=== PATIENT | male | born 1955 | race Caucasian/White ===

== ENCOUNTER 2017-07-23 07:05 | Emergency (ER) | payer BC ==
--- NOTE | 2017-07-23 07:46 | RAD ---
TWO VIEWS OF THE CHEST: COMPARISON: 01/19/16. HISTORY: Cough and shortness of breath. FINDINGS: Two views of the chest show a normal-size cardiomediastinal silhouette. There is a nodular opacity p rojecting over the mid portion of the right thorax. No pleural effusion or consolidation are seen. Hyperexpansion of the lungs is seen which could be secondary to COPD. IMPRESSION: Nodular opacity projecting over the right thorax. A repeat examination with nipple markers could be performed. Alternatively, a CT of the chest with contrast could be performed to evaluate this nodula r density. CODE T POS: [facility]
[2017-07-23] MEDS ORDERED: Dexamethasone 4 mg/ml Vial ONE (08:28)
== END 2017-07-23 08:36 | disposition home or self-care (01) ==
LOC: ERS 07:05
DX: J44.1 Chronic obstructive pulmonary disease with (acute) exacerbation (principal); I10 Essential (primary) hypertension; F41.9 Anxiety disorder, unspecified; F17.210 Nicotine dependence, cigarettes, uncomplicated; Z71.6 Tobacco abuse counseling; Z79.899 Other long term (current) drug therapy
CPT/HCPCS: 71046; 96372; 99406; J1100; J7620

== ENCOUNTER 2024-01-25 00:51 | Inpatient (IN) | payer MEDICARE ==
[2024-01-25 02:21] VITALS: BMI 17.9
[2024-01-25] MEDS ORDERED: Acetaminophen 325 MG TAB PO PRN (02:28)
[2024-01-25] MEDS ORDERED: Ondansetron PF 4 MG/2 ML Vial IVP PRN (02:28)
[2024-01-25] MEDS ORDERED: Albuterol 200 PUFF INH INH PRN (02:37)
[2024-01-25] MEDS: Melatonin 3 MG TAB PO PRN (03:46)
[2024-01-25 06:47] LABS: Troponin I 0.021 ng/mL (< 0.028)
[2024-01-25] MEDS: Furosemide 40 MG (4 mL) VIAL SLOW IVP SCH (07:00)
[2024-01-25] MEDS: Mometasone 200 MCG/Formoterol 5 MCG 120 PUFF INHALER INH SCH (07:20)
[2024-01-25] MEDS: predniSONE 20 MG TAB PO SCH (07:27)
[2024-01-25] MEDS: Atenolol 50 MG TAB PO SCH (07:27)
[2024-01-25] MEDS: Doxazosin Mesylate 4 MG TAB PO SCH (07:28)
[2024-01-25] MEDS: ALPRAZolam 0.5 MG TAB PO PRN (07:28)
[2024-01-25 07:44] LABS: Amphetamine Not Detected (NotDetected); Barbiturates Screen Not Detected (NotDetected); Benzodiazepine Screen Detected (NotDetected); Cocaine Metabolite Screen Not Detected (NotDetected); Methadone Not Detected (NotDetected); Methamphetamine Not Detected (NotDetected); Opiate Screen Not Detected (NotDetected); Oxycodone Screen Not Detected (NotDetected); Phencyclidine (PCP) Not Detected (NotDetected); THC/Cannabinoid Screen Not Detected (NotDetected); Tricyclic Screen Not Detected (NotDetected)
[2024-01-25 08:00] LABS: Anion Gap 17 mmol/L (10-20); BUN (Urea Nitrogen) 7 mg/dL (8.4-25.7); Calc. Creatinine Clearance 89 mL/min (70-130); Calcium 9.1 mg/dL (7.8-10.44); Carbon Dioxide 26 mmol/L (23-31); Chloride 87 mmol/L (98-107); Estimated GFR 107; Glucose 132 mg/dL (80-115); Potassium 3.5 mmol/L (3.5-5.1); Sodium 126 mmol/L (136-145)
[2024-01-25] MEDS ORDERED: Ipratropium/Albuterol 3 ML NEB NEB PRN (08:18)
[2024-01-25 08:20] LABS: #Basophils Less than 0.03 10x3/uL (0.0-0.2); #Eosinophils Less than 0.03 10x3/uL (0.0-0.7); %Lymphocytes 8.4 % (21.0-51.0); %Monocytes 3.7 % (0.0-10.0); %Neutrophils 87.9 % (42.0-75.0); Hematocrit 37.3 % (42.0-52.0); Hemoglobin 13.3 g/dL (14.0-18.0); Mean Corpuscular HGB CONC 35.9 g/dL (32.0-36.0); Mean Corpuscular Hemoglobin 33.5 pg (27.0-31.0); Mean Corpuscular Volume 93.3 fL (78.0-98.0); Mean Platelet Volume 9.9 fL (7.4-10.4); Platelet Adequacy Comment Platelets Decreased; Platelet Count 98 10x3/uL (130-400); RBC Morphology Within Normal Limits
[2024-01-25] MEDS: Aspirin 81 mg Enteric Coated Tablet PO SCH (09:49)
[2024-01-25] MEDS: Ipratropium/Albuterol 3 ML NEB NEB SCH ×2 (10:42→14:31)
[2024-01-25 10:57] VITALS: BMI 17.7
[2024-01-25] MEDS ORDERED: Ipratropium/Albuterol 3 ML NEB NEB SCH (13:00)
[2024-01-25] MEDS: Atorvastatin Calcium 20 MG TAB PO SCH (20:41)
[2024-01-26 05:20] LABS: ALT (SGPT) 33 U/L (8-55); AST (SGOT) 56 U/L (5-34); Albumin 3.2 g/dL (3.4-4.8); Alkaline Phosphatase 171 U/L (40-110); Anion Gap 15 mmol/L (10-20); BUN (Urea Nitrogen) 13 mg/dL (8.4-25.7); Bilirubin, Total 1.1 mg/dL (0.2-1.2); Calc. Creatinine Clearance 101 mL/min (70-130); Calcium 8.7 mg/dL (7.8-10.44); Carbon Dioxide 29 mmol/L (23-31); Chloride 86 mmol/L (98-107); Estimated GFR 112; Globulin 3.1 g/dL (2.4-3.5); Glucose 114 mg/dL (80-115); Potassium 2.5 mmol/L (3.5-5.1); Protein, Total 6.3 g/dL (5.8-8.1); Sodium 127 mmol/L (136-145)
[2024-01-26 05:27] LABS: #Basophils Less than 0.03 10x3/uL (0.0-0.2); #Eosinophils Less than 0.03 10x3/uL (0.0-0.7); %Lymphocytes 10.7 % (21.0-51.0); %Monocytes 14.3 % (0.0-10.0); %Neutrophils 74.7 % (42.0-75.0); Hemoglobin 11.5 g/dL (14.0-18.0); Mean Corpuscular HGB CONC 35.9 g/dL (32.0-36.0); Mean Corpuscular Volume 94.7 fL (78.0-98.0); Platelet Count 98 10x3/uL (130-400); Red Blood Cell (RBC) Count 3.38 mill/uL (4.70-6.10)
[2024-01-26] MEDS: Potassium Chloride 20 MEQ TAB PO SCH (05:55)
[2024-01-26] MEDS: Furosemide 20 MG (2 mL) VIAL SLOW IVP SCH (05:56)
[2024-01-26 06:22] LABS: Magnesium 1.7 mg/dL (1.6-2.6)
[2024-01-26] MEDS: Potassium Chloride 10 MEQ in Premix 1 BAG IVPB SCH (06:41)
[2024-01-26] MEDS: Atenolol 50 MG TAB PO SCH (08:41)
[2024-01-26] MEDS: Aspirin 81 mg Enteric Coated Tablet PO SCH (08:41)
[2024-01-26] MEDS: Potassium Bicarbonate/Cit Ac 20 MEQ TAB PO SCH (12:31)
[2024-01-26 17:51] LABS: Potassium 3.9 mmol/L (3.5-5.1)
[2024-01-27 04:53] LABS: Hematocrit 34.4 % (42.0-52.0); Mean Corpuscular HGB CONC 34.9 g/dL (32.0-36.0); Mean Corpuscular Hemoglobin 33.5 pg (27.0-31.0); Mean Corpuscular Volume 96.1 fL (78.0-98.0); Mean Platelet Volume 9.9 fL (7.4-10.4); Platelet Count 97 10x3/uL (130-400); RBC Distribution Width 13.2 % (11.5-14.5); Red Blood Cell (RBC) Count 3.58 mill/uL (4.70-6.10)
[2024-01-27 05:01] LABS: Anion Gap 12 mmol/L (10-20); BUN (Urea Nitrogen) 11 mg/dL (8.4-25.7); Calc. Creatinine Clearance 88 mL/min (70-130); Calcium 8.9 mg/dL (7.8-10.44); Carbon Dioxide 25 mmol/L (23-31); Chloride 91 mmol/L (98-107); Estimated GFR 110; Glucose 99 mg/dL (80-115); Potassium 3.5 mmol/L (3.5-5.1); Sodium 124 mmol/L (136-145)
[2024-01-27 11:34] VITALS: BP 169/89; TEMP 98.7
== END 2024-01-27 14:26 | disposition home or self-care (01) | DRG 191 ==
LOC: 2NO 01:52 → OBSVTOIN 01-26 08:18
PROVIDERS: ADMIT Internal Medicine; ATTEND Internal Medicine
DX: J44.1 Chronic obstructive pulmonary disease with (acute) exacerbation (principal); D61.818 Other pancytopenia; E87.1 Hypo-osmolality and hyponatremia; I10 Essential (primary) hypertension; E87.6 Hypokalemia; M19.90 Unspecified osteoarthritis, unspecified site; F41.9 Anxiety disorder, unspecified; F17.210 Nicotine dependence, cigarettes, uncomplicated; D69.59 Other secondary thrombocytopenia; K70.30 Alcoholic cirrhosis of liver without ascites; Z79.899 Other long term (current) drug therapy
CPT/HCPCS: 36415; 71045; 76705; 80048; 80053; 80306; 83735; 83880; 84484; 85025; 85027; 85610; 85730; 93005; 93306; 94640; 96374; 96375; 96376; G0378; J1940; J2919; J3480; J7512; J7620

== ENCOUNTER 2024-04-09 01:25 | Inpatient (IN) | payer MEDICARE ==
[2024-04-09] MEDS ORDERED: Dexamethasone 10 MG/ML VIAL ONE (01:48)
[2024-04-09] MEDS ORDERED: Ipratropium/Albuterol 3 ML NEB ONE (01:48)
[2024-04-09 02:43] LABS: #Basophils Less than 0.03 10x3/uL (0.0-0.2); #Eosinophils Less than 0.03 10x3/uL (0.0-0.7); %Basophils 0.1 % (0.0-1.0); %Eosinophils 0.1 % (0.0-10.0); %Lymphocytes 8.5 % (21.0-51.0); %Monocytes 10.2 % (0.0-10.0); %Neutrophils 80.6 % (42.0-75.0); Hematocrit 33.1 % (42.0-52.0); Hemoglobin 11.8 g/dL (14.0-18.0); Mean Corpuscular HGB CONC 35.6 g/dL (32.0-36.0); Mean Corpuscular Hemoglobin 32.5 pg (27.0-31.0); Mean Corpuscular Volume 91.2 fL (78.0-98.0); Mean Platelet Volume 9.2 fL (7.4-10.4); Platelet Count 130 10x3/uL (130-400); RBC Distribution Width 11.1 % (11.5-14.5); Red Blood Cell (RBC) Count 3.63 mill/uL (4.70-6.10)
[2024-04-09 02:48] LABS: ALT (SGPT) 21 U/L (Less than 45); AST (SGOT) 66 U/L (11-34); Albumin 2.8 g/dL (3.1-4.5); Alkaline Phosphatase 131 U/L (40-110); Anion Gap 15 mmol/L (10-20); BUN (Urea Nitrogen) 10 mg/dL (8.4-25.7); Bilirubin, Total 1.7 mg/dL (0.3-1.2); Calc. Creatinine Clearance 0 mL/min (70-130); Calcium 8.5 mg/dL (7.8-10.44); Carbon Dioxide 18 mmol/L (23-31); Chloride 82 mmol/L (98-107); Estimated GFR 113; Globulin 2.7 g/dL (2.4-3.5); Glucose 88 mg/dL (80-115); Protein, Total 5.5 g/dL (5.8-8.1); Sodium 111 mmol/L (136-145)
[2024-04-09] MEDS ORDERED: Ondansetron PF 4 MG/2 ML Vial IVP PRN (04:32)
[2024-04-09 04:45] VITALS: BMI 16.5
[2024-04-09] MEDS ORDERED: Acetaminophen 325 MG TAB PO PRN (06:55)
[2024-04-09 07:20] LABS: Calcium 8.5 mg/dL (7.8-10.44); Chloride 83 mmol/L (98-107); Potassium 4.2 mmol/L (3.5-5.1)
[2024-04-09 07:21] LABS: Glucose 80 mg/dL (80-115)
[2024-04-09 07:22] LABS: Anion Gap 15 mmol/L (10-20); Carbon Dioxide 17 mmol/L (23-31)
[2024-04-09 07:24] LABS: Calc. Creatinine Clearance 109 mL/min (70-130); Estimated GFR 115
[2024-04-09 07:25] LABS: BUN (Urea Nitrogen) 11 mg/dL (8.4-25.7)
[2024-04-09 07:45] LABS: Sodium 111 mmol/L (136-145)
[2024-04-09] MEDS: Enoxaparin 30 MG (0.3 mL) SYRINGE SC SCH (09:14)
[2024-04-09] MEDS: Famotidine/PF 20 mg/2ml Vial SLOW IVP SCH (09:14)
[2024-04-09] MEDS: Sodium Chloride 3% 500 ML IVPB SCH (11:55)
[2024-04-09 12:25] LABS: Anion Gap 15 mmol/L (10-20); BUN (Urea Nitrogen) 11 mg/dL (8.4-25.7); Calc. Creatinine Clearance 112 mL/min (70-130); Calcium 8.4 mg/dL (7.8-10.44); Carbon Dioxide 16 mmol/L (23-31); Chloride 84 mmol/L (98-107); Estimated GFR 115; Glucose 83 mg/dL (80-115); Potassium 4.2 mmol/L (3.5-5.1); Sodium 111 mmol/L (136-145)
[2024-04-09 14:27] LABS: Anion Gap 16 mmol/L (10-20); BUN (Urea Nitrogen) 12 mg/dL (8.4-25.7); Calc. Creatinine Clearance 109 mL/min (70-130); Calcium 8.4 mg/dL (7.8-10.44); Carbon Dioxide 17 mmol/L (23-31); Chloride 85 mmol/L (98-107); Estimated GFR 115; Glucose 78 mg/dL (80-115); Potassium 4.3 mmol/L (3.5-5.1); Sodium 114 mmol/L (136-145)
[2024-04-09 18:32] LABS: Anion Gap 17 mmol/L (10-20); BUN (Urea Nitrogen) 13 mg/dL (8.4-25.7); Calc. Creatinine Clearance 107 mL/min (70-130); Calcium 8.4 mg/dL (7.8-10.44); Carbon Dioxide 16 mmol/L (23-31); Chloride 88 mmol/L (98-107); Estimated GFR 114; Glucose 79 mg/dL (80-115); Potassium 4.2 mmol/L (3.5-5.1); Sodium 117 mmol/L (136-145)
[2024-04-09 21:50] LABS: Anion Gap 17 mmol/L (10-20); BUN (Urea Nitrogen) 14 mg/dL (8.4-25.7); Calc. Creatinine Clearance 98 mL/min (70-130); Calcium 8.3 mg/dL (7.8-10.44); Carbon Dioxide 17 mmol/L (23-31); Chloride 89 mmol/L (98-107); Estimated GFR 111; Glucose 89 mg/dL (80-115); Potassium 3.9 mmol/L (3.5-5.1); Sodium 119 mmol/L (136-145)
[2024-04-10 03:41] LABS: Anion Gap 16 mmol/L (10-20); BUN (Urea Nitrogen) 15 mg/dL (8.4-25.7); Calc. Creatinine Clearance 100 mL/min (70-130); Carbon Dioxide 18 mmol/L (23-31); Chloride 89 mmol/L (98-107); Potassium 3.8 mmol/L (3.5-5.1); Sodium 119 mmol/L (136-145)
[2024-04-10 03:42] LABS: Calcium 8.5 mg/dL (7.8-10.44); Estimated GFR 112; Glucose 87 mg/dL (80-115)
[2024-04-10] MEDS: Sodium Chloride 0.9% 1,000 ML IV SCH (10:13)
[2024-04-10] MEDS ORDERED: Lorazepam 2 MG/ML VIAL IM PRN (15:14)
[2024-04-10] MEDS ORDERED: Lorazepam 1 MG TAB PO PRN (15:14)
[2024-04-10] MEDS ORDERED: Ondansetron ODT 4 MG TAB PO PRN (15:14)
[2024-04-10] MEDS ORDERED: Electrolyte Replacement Protocol 1 EACH FS SCH (15:15)
[2024-04-10] MEDS ORDERED: Electrolyte Replacement Protocol FS PRN (15:30)
[2024-04-10 16:06] LABS: Anion Gap 18 mmol/L (10-20); BUN (Urea Nitrogen) 15 mg/dL (8.4-25.7); Calc. Creatinine Clearance 100 mL/min (70-130); Calcium 8.6 mg/dL (7.8-10.44); Carbon Dioxide 15 mmol/L (23-31); Chloride 90 mmol/L (98-107); Estimated GFR 112; Glucose 105 mg/dL (80-115); Potassium 4.3 mmol/L (3.5-5.1); Sodium 119 mmol/L (136-145)
[2024-04-10] MEDS: Lorazepam 1 MG TAB PO SCH (16:15)
[2024-04-10] MEDS: Thiamine HCl 200 MG/2 ML VIAL SLOW IVP SCH (16:15)
[2024-04-10] MEDS: Lorazepam 2 MG/ML VIAL SLOW IVP SCH (22:13)
[2024-04-11 07:00] LABS: #Basophils Less than 0.03 10x3/uL (0.0-0.2); #Eosinophils Less than 0.03 10x3/uL (0.0-0.7); %Basophils 0.1 % (0.0-1.0); %Lymphocytes 7.3 % (21.0-51.0); %Monocytes 8.7 % (0.0-10.0); %Neutrophils 83.3 % (42.0-75.0); Hematocrit 32.8 % (42.0-52.0); Hemoglobin 11.9 g/dL (14.0-18.0); Mean Corpuscular HGB CONC 36.3 g/dL (32.0-36.0); Mean Corpuscular Volume 90.9 fL (78.0-98.0); Platelet Count 123 10x3/uL (130-400); RBC Distribution Width 11.4 % (11.5-14.5); Red Blood Cell (RBC) Count 3.61 mill/uL (4.70-6.10)
[2024-04-11 07:26] LABS: Anion Gap 16 mmol/L (10-20); BUN (Urea Nitrogen) 15 mg/dL (8.4-25.7); Calc. Creatinine Clearance 100 mL/min (70-130); Calcium 8.9 mg/dL (7.8-10.44); Carbon Dioxide 21 mmol/L (23-31); Chloride 88 mmol/L (98-107); Estimated GFR 112; Glucose 104 mg/dL (80-115); Potassium 3.7 mmol/L (3.5-5.1); Sodium 121 mmol/L (136-145)
[2024-04-11] MEDS: Multivit, Therapeutic 1 TAB PO SCH (08:49)
[2024-04-11] MEDS: Folic Acid 1 MG TAB PO SCH (08:49)
[2024-04-11] MEDS ORDERED: Sodium Chloride 0.9% 1,000 ML IV SCH (13:00)
[2024-04-11] MEDS: hydrALAZINE 20 MG/ML VIAL SLOW IVP PRN (14:26)
[2024-04-11 15:12] VITALS: BMI 16.5
[2024-04-11] MEDS ORDERED: Lorazepam 1 MG TAB PO PRN (15:14)
[2024-04-11 20:13] LABS: Anion Gap 13 mmol/L (10-20); BUN (Urea Nitrogen) 14 mg/dL (8.4-25.7); Calc. Creatinine Clearance 112 mL/min (70-130); Calcium 8.9 mg/dL (7.8-10.44); Carbon Dioxide 19 mmol/L (23-31); Chloride 93 mmol/L (98-107); Estimated GFR 115; Glucose 112 mg/dL (80-115); Potassium 3.5 mmol/L (3.5-5.1); Sodium 121 mmol/L (136-145)
[2024-04-11] MEDS: Mirtazapine 15 MG TAB PO SCH (22:29)
[2024-04-12 05:37] LABS: #Basophils Less than 0.03 10x3/uL (0.0-0.2); #Eosinophils Less than 0.03 10x3/uL (0.0-0.7); %Basophils 0.1 % (0.0-1.0); %Eosinophils 0.1 % (0.0-10.0); %Lymphocytes 9.7 % (21.0-51.0); %Monocytes 9.3 % (0.0-10.0); Hemoglobin 11.3 g/dL (14.0-18.0); Mean Corpuscular HGB CONC 35.3 g/dL (32.0-36.0); Mean Corpuscular Hemoglobin 32.5 pg (27.0-31.0); Mean Platelet Volume 8.8 fL (7.4-10.4); Platelet Count 131 10x3/uL (130-400); RBC Distribution Width 11.7 % (11.5-14.5); Red Blood Cell (RBC) Count 3.48 mill/uL (4.70-6.10)
[2024-04-12 05:51] LABS: Anion Gap 12 mmol/L (10-20); BUN (Urea Nitrogen) 13 mg/dL (8.4-25.7); Calc. Creatinine Clearance 109 mL/min (70-130); Calcium 8.8 mg/dL (7.8-10.44); Carbon Dioxide 21 mmol/L (23-31); Chloride 90 mmol/L (98-107); Estimated GFR 115; Glucose 103 mg/dL (80-115); Potassium 3.4 mmol/L (3.5-5.1); Sodium 120 mmol/L (136-145)
[2024-04-12] MEDS: Potassium Chloride 20 MEQ TAB PO SCH (08:29)
[2024-04-12 10:00] LABS: ALT (SGPT) 24 U/L (Less than 45); AST (SGOT) 48 U/L (11-34); Albumin 2.6 g/dL (3.1-4.5); Alkaline Phosphatase 122 U/L (40-110); Bilirubin, Direct 0.7 mg/dL (0.1-0.3); Bilirubin, Total 1.2 mg/dL (0.3-1.2); Protein, Total 5.2 g/dL (5.8-8.1)
[2024-04-12] MEDS: Sodium Chloride 0.9% 1,000 ML IV SCH (10:04)
[2024-04-12] MEDS: cefTRIAXone\\ROCEPHIN 1 GM in Sodium Chloride 0.9% 100 ML IVPB SCH (10:06)
[2024-04-12] MEDS: Azithromycin 500 MG in Sodium Chloride 0.9% 250 ML 250 ML IVPB SCH (10:07)
[2024-04-12 13:28] LABS: INR-International Normal Ratio 1.4; Prothrombin Time 17.4 sec (12.0-14.7)
[2024-04-12 13:44] LABS: PTT 38.5 sec (22.9-36.1)
[2024-04-12] MEDS: Lorazepam 0.5 MG TAB PO SCH (14:48)
[2024-04-12] MEDS ORDERED: Lorazepam 1 MG TAB PO PRN (15:14)
[2024-04-13 08:07] LABS: #Basophils Less than 0.03 10x3/uL (0.0-0.2); #Eosinophils Less than 0.03 10x3/uL (0.0-0.7); %Basophils 0.1 % (0.0-1.0); %Eosinophils 0.1 % (0.0-10.0); %Lymphocytes 11.9 % (21.0-51.0); %Monocytes 9.6 % (0.0-10.0); %Neutrophils 77.5 % (42.0-75.0); Hemoglobin 10.6 g/dL (14.0-18.0); Mean Corpuscular HGB CONC 35.3 g/dL (32.0-36.0); Mean Corpuscular Hemoglobin 32.8 pg (27.0-31.0); Mean Corpuscular Volume 92.9 fL (78.0-98.0); Platelet Count 104 10x3/uL (130-400); RBC Distribution Width 11.5 % (11.5-14.5); Red Blood Cell (RBC) Count 3.23 mill/uL (4.70-6.10)
[2024-04-13 08:09] LABS: Anion Gap 14 mmol/L (10-20); BUN (Urea Nitrogen) 11 mg/dL (8.4-25.7); Calc. Creatinine Clearance 120 mL/min (70-130); Calcium 8.6 mg/dL (7.8-10.44); Carbon Dioxide 21 mmol/L (23-31); Chloride 94 mmol/L (98-107); Estimated GFR 118; Glucose 90 mg/dL (80-115); Potassium 3.6 mmol/L (3.5-5.1); Sodium 125 mmol/L (136-145)
[2024-04-13 08:36] LABS: Anisocytosis SLIGHT = 6-15 cells HPF (0-5); Burr Cells SLIGHT = 2-5 cells HPF (0-1); Hypochromia SLIGHT = 6-15 cells HPF (0-5); Macrocytosis SLIGHT = 6-15 cells HPF (0-5); Platelet Adequacy Comment Platelets Decreased; Schistocytes SLIGHT = 2-5 cells HPF (0-1)
[2024-04-13] MEDS: Thiamine 100 MG TAB PO SCH (14:34)
[2024-04-13] MEDS ORDERED: Lidocaine 1% PF 5 ML VIAL ONE (14:54)
[2024-04-13] MEDS ORDERED: Sodium Bicarbonate 2.5 MEQ/5 ML SDV ONE (14:54)
[2024-04-14 05:40] LABS: #Basophils Less than 0.03 10x3/uL (0.0-0.2); %Basophils 0.2 % (0.0-1.0); %Eosinophils 0.9 % (0.0-10.0); %Lymphocytes 18.5 % (21.0-51.0); %Monocytes 11.6 % (0.0-10.0); %Neutrophils 68.3 % (42.0-75.0); Hematocrit 30.8 % (42.0-52.0); Hemoglobin 10.9 g/dL (14.0-18.0); Mean Corpuscular HGB CONC 35.4 g/dL (32.0-36.0); Mean Corpuscular Hemoglobin 32.7 pg (27.0-31.0); Mean Corpuscular Volume 92.5 fL (78.0-98.0); Mean Platelet Volume 9.1 fL (7.4-10.4); Platelet Count 100 10x3/uL (130-400); RBC Distribution Width 11.6 % (11.5-14.5); Red Blood Cell (RBC) Count 3.33 mill/uL (4.70-6.10)
[2024-04-14 05:44] LABS: Anion Gap 13 mmol/L (10-20); BUN (Urea Nitrogen) 8 mg/dL (8.4-25.7); Calc. Creatinine Clearance 112 mL/min (70-130); Calcium 8.4 mg/dL (7.8-10.44); Carbon Dioxide 23 mmol/L (23-31); Chloride 95 mmol/L (98-107); Estimated GFR 115; Glucose 91 mg/dL (80-115); Potassium 3.3 mmol/L (3.5-5.1); Sodium 128 mmol/L (136-145)
[2024-04-14] MEDS: Potassium Chloride 20 MEQ TAB PO SCH (09:27)
[2024-04-14] MEDS: Mometasone 200 MCG/Formoterol 5 MCG 120 PUFF INHALER INH SCH (18:48)
[2024-04-15 11:03] LABS: #Basophils Less than 0.03 10x3/uL (0.0-0.2); %Basophils 0.2 % (0.0-1.0); %Eosinophils 0.9 % (0.0-10.0); %Lymphocytes 14.3 % (21.0-51.0); %Monocytes 10.4 % (0.0-10.0); %Neutrophils 73.7 % (42.0-75.0); Hematocrit 34.8 % (42.0-52.0); Mean Corpuscular HGB CONC 34.5 g/dL (32.0-36.0); Mean Corpuscular Hemoglobin 32.5 pg (27.0-31.0); Mean Corpuscular Volume 94.3 fL (78.0-98.0); Platelet Count 132 10x3/uL (130-400); RBC Distribution Width 11.7 % (11.5-14.5); Red Blood Cell (RBC) Count 3.69 mill/uL (4.70-6.10)
[2024-04-15 11:06] LABS: Anion Gap 11 mmol/L (10-20); BUN (Urea Nitrogen) 9 mg/dL (8.4-25.7); Calc. Creatinine Clearance 104 mL/min (70-130); Calcium 8.5 mg/dL (7.8-10.44); Carbon Dioxide 25 mmol/L (23-31); Chloride 100 mmol/L (98-107); Estimated GFR 113; Glucose 105 mg/dL (80-115); Potassium 3.3 mmol/L (3.5-5.1); Sodium 133 mmol/L (136-145)
[2024-04-15] MEDS: Potassium Chloride 20 MEQ TAB PO SCH (12:04)
[2024-04-15] MEDS: Lorazepam 0.5 MG TAB PO PRN (18:19)
[2024-04-16 07:37] LABS: #Basophils Less than 0.03 10x3/uL (0.0-0.2); %Basophils 0.3 % (0.0-1.0); %Eosinophils 1.1 % (0.0-10.0); %Lymphocytes 15.5 % (21.0-51.0); %Monocytes 10.3 % (0.0-10.0); %Neutrophils 72.4 % (42.0-75.0); Hematocrit 33.5 % (42.0-52.0); Hemoglobin 11.7 g/dL (14.0-18.0); Mean Corpuscular HGB CONC 34.2 g/dL (32.0-36.0); Mean Corpuscular Volume 93.5 fL (78.0-98.0); Platelet Count 126 10x3/uL (130-400); RBC Distribution Width 11.9 % (11.5-14.5); Red Blood Cell (RBC) Count 3.53 mill/uL (4.70-6.10)
[2024-04-16 07:48] LABS: Anion Gap 12 mmol/L (10-20); BUN (Urea Nitrogen) 9 mg/dL (8.4-25.7); Calc. Creatinine Clearance 117 mL/min (70-130); Calcium 8.4 mg/dL (7.8-10.44); Carbon Dioxide 25 mmol/L (23-31); Chloride 100 mmol/L (98-107); Estimated GFR 117; Glucose 103 mg/dL (80-115); Potassium 3.4 mmol/L (3.5-5.1); Sodium 134 mmol/L (136-145)
[2024-04-16 08:13] LABS: Anisocytosis SLIGHT = 6-15 cells HPF (0-5); Band 3 % (5-11); Eosinophils 1 % (0-10); Lymphocytes 8 % (21-51); Macrocytosis SLIGHT = 6-15 cells HPF (0-5); Monocytes 2 % (0-10); Neutrophil 85 % (42-75); Plasma Cells 1 % (0-0); Platelet Adequacy Comment Platelets Decreased; Polychromasia SLIGHT = 2-3 cells HPF (0-2); RBC Morphology Within Normal Limits
[2024-04-16] MEDS: Atenolol 50 MG TAB PO SCH (09:55)
[2024-04-16] MEDS: Potassium Chloride 20 MEQ TAB PO SCH (13:20)
[2024-04-16] MEDS: ALPRAZolam 0.5 MG TAB PO PRN (13:22)
[2024-04-16] MEDS: Ipratropium/Albuterol 3 ML NEB NEB PRN (14:50)
[2024-04-17 07:36] LABS: Anion Gap 12 mmol/L (10-20); BUN (Urea Nitrogen) 12 mg/dL (8.4-25.7); Calc. Creatinine Clearance 104 mL/min (70-130); Calcium 8.2 mg/dL (7.8-10.44); Carbon Dioxide 23 mmol/L (23-31); Chloride 102 mmol/L (98-107); Estimated GFR 113; Glucose 85 mg/dL (80-115); Potassium 3.5 mmol/L (3.5-5.1); Sodium 133 mmol/L (136-145)
[2024-04-17 07:57] LABS: Macrocytosis SLIGHT = 6-15 cells HPF (0-5); Platelet Adequacy Comment Platelets Decreased; Polychromasia MODERATE = 3-4 cells HPF (0-2); RBC Morphology Within Normal Limits
[2024-04-17 07:58] LABS: #Basophils Less than 0.03 10x3/uL (0.0-0.2); %Basophils 0.3 % (0.0-1.0); %Eosinophils 2.8 % (0.0-10.0); %Lymphocytes 18.6 % (21.0-51.0); %Monocytes 10.8 % (0.0-10.0); Hematocrit 31.8 % (42.0-52.0); Hemoglobin 10.7 g/dL (14.0-18.0); Mean Corpuscular HGB CONC 34.2 g/dL (32.0-36.0); Mean Corpuscular Hemoglobin 32.3 pg (27.0-31.0); Mean Corpuscular Volume 94.4 fL (78.0-98.0); Mean Platelet Volume 9.3 fL (7.4-10.4); Platelet Count 112 10x3/uL (130-400); RBC Distribution Width 11.9 % (11.5-14.5); Red Blood Cell (RBC) Count 3.41 mill/uL (4.70-6.10)
[2024-04-17] MEDS: Potassium Chloride 20 MEQ TAB PO SCH (09:43)
[2024-04-17] MEDS: Doxazosin Mesylate 4 MG TAB PO SCH (09:44)
[2024-04-17] MEDS: Doxazosin 2 MG TAB PO SCH (21:26)
[2024-04-18 10:20] LABS: Anion Gap 9 mmol/L (10-20); BUN (Urea Nitrogen) 14 mg/dL (8.4-25.7); Calc. Creatinine Clearance 104 mL/min (70-130); Calcium 8.5 mg/dL (7.8-10.44); Carbon Dioxide 26 mmol/L (23-31); Chloride 104 mmol/L (98-107); Estimated GFR 113; Glucose 110 mg/dL (80-115); Sodium 135 mmol/L (136-145)
[2024-04-19 06:31] LABS: Anion Gap 12 mmol/L (10-20); BUN (Urea Nitrogen) 17 mg/dL (8.4-25.7); Calc. Creatinine Clearance 94 mL/min (70-130); Calcium 8.4 mg/dL (7.8-10.44); Carbon Dioxide 22 mmol/L (23-31); Chloride 105 mmol/L (98-107); Estimated GFR 110; Glucose 110 mg/dL (80-115); Potassium 3.8 mmol/L (3.5-5.1); Sodium 135 mmol/L (136-145)
[2024-04-20] MEDS: HYDROcodone/Acetaminophen 5/325 mg Tablet PO SCH (00:33)
[2024-04-20 06:08] LABS: Anion Gap 10 mmol/L (10-20); BUN (Urea Nitrogen) 17 mg/dL (8.4-25.7); Calc. Creatinine Clearance 91 mL/min (70-130); Calcium 8.2 mg/dL (7.8-10.44); Carbon Dioxide 24 mmol/L (23-31); Chloride 107 mmol/L (98-107); Estimated GFR 109; Glucose 101 mg/dL (80-115); Potassium 3.7 mmol/L (3.5-5.1); Sodium 137 mmol/L (136-145)
[2024-04-20 13:43] VITALS: BP 112/69; TEMP 98.1
== END 2024-04-20 16:18 | DRG 640 ==
LOC: ERS 01:25 → ERHOLD 03:49 → T4-A 03:57 → IMCU/EMU 07:17 → T4-A 04-10 13:13
PROVIDERS: ADMIT Hospitalist; ATTEND Internal Medicine
PROC: 0W9G3ZZ Drainage of Peritoneal Cavity, Percutaneous Approach (ICD-10-PCS; principal; 2024-04-13)
DX: E87.1 Hypo-osmolality and hyponatremia (principal); E43 Unspecified severe protein-calorie malnutrition; J18.9 Pneumonia, unspecified organism; Z68.1 Body mass index [BMI] 19.9 or less, adult; Z51.5 Encounter for palliative care; Z66 Do not resuscitate; K70.31 Alcoholic cirrhosis of liver with ascites; S50.02XA Contusion of left elbow, initial encounter; W18.30XA Fall on same level, unspecified, initial encounter; J44.9 Chronic obstructive pulmonary disease, unspecified; I10 Essential (primary) hypertension; F17.210 Nicotine dependence, cigarettes, uncomplicated; F10.10 Alcohol abuse, uncomplicated; E83.110 Hereditary hemochromatosis; D63.8 Anemia in other chronic diseases classified elsewhere; E87.6 Hypokalemia; F41.9 Anxiety disorder, unspecified; Z79.899 Other long term (current) drug therapy; Z98.890 Other specified postprocedural states
CPT/HCPCS: 36415; 36416; 49083; 71045; 76705; 80048; 80053; 80076; 82140; 83930; 83935; 84300; 84484; 85025; 85610; 85730; 94640; 96374; J0360; J0456; J0696; J1100; J1650; J2060; J3411; J3490; J7030; J7050; J7131; J7620